=== PATIENT | female | born 1940 | race Caucasian/White ===

== ENCOUNTER 2022-03-04 15:55 | Observation (INO) ==
[2022-03-04 16:27] LABS: Basophils % 0.5 % (0.0-0.8); Eosinophils # 0.2 10*3/uL (0.0-0.87); Eosinophils % 3.6 % (0.00-10.9); Hematocrit 39.7 VOL% (35.7-47.0); Hemoglobin 13.6 GM/DL (12.0-16.0); Immature Granulocytes % 0.8 %; Immature Granulocytes Absolute 0.05 #; Lymphocytes # 1.8 10*3/uL (1.4-4.0); Lymphocytes % 28.3 % (21.3-54.2); Mean Corpuscular HGB Conc 34.3 GM/DL (32-36); Mean Corpuscular Volume 92.5 FL (87-102); Monocytes # 0.5 10*3/uL (0.11-0.8); Monocytes % 7.9 % (1.7-12.7); Neutrophils % 58.9 % (38.7-73.9); Platelet Count 176 T/CUMM (130-400); Red Blood Count 4.29 MC/CUMM (3.8-5.5); Red Cell Distribution Width 12.3 % (9.3-17.3); White Blood Count 6.5 T/CUMM (4-12)
[2022-03-04 16:41] LABS: Albumin 3.5 G/DL (3.4-5.0); Bilirubin,Total 0.5 MG/DL (0.20-1.00); Total Protein 6.8 G/DL (6.4-8.2)
[2022-03-04] MEDS ORDERED: diphenhydrAMINE CAP 25 MG CAPSULE PO PRN (16:58)
[2022-03-04] MEDS ORDERED: NITROGLYCERIN SL 0.4 MG TABLET SL PRN (17:10)
[2022-03-04] MEDS ORDERED: POTASSIUM CHLORIDE 20 MEQ TABLET PO STA ×2 (17:10→17:47)
[2022-03-04] MEDS ORDERED: FAMOTIDINE 20 MG/2 ML VIAL IV ONE (17:27)
[2022-03-04] MEDS: methylPREDNISolone SOD SUC 125 MG/2 ML VIAL IV SCH (17:33)
[2022-03-04] MEDS: FAMOTIDINE INJ 40 MG in SODIUM CHLORIDE 0.9% 100 ML IV SCH (17:48)
[2022-03-04] MEDS ORDERED: ACETAMINOPHEN 325 MG TABLET PO PRN (17:54)
[2022-03-04] MEDS ORDERED: ONDANSETRON 4 MG/2 ML VIAL IV PRN (17:54)
[2022-03-04] MEDS ORDERED: POTASSIUM CHLORIDE 20 MEQ TABLET PO PRN (17:57)
[2022-03-04] MEDS ORDERED: ENOXAPARIN 40 MG/0.4 ML SYRINGE SUBCUT SCH (18:00)
[2022-03-04] MEDS ORDERED: atenoloL 25 MG TABLET PO ONE (21:00)
[2022-03-05 04:19] LABS: Hematocrit 39.9 VOL% (35.7-47.0); Hemoglobin 13.6 GM/DL (12.0-16.0); Immature Granulocytes % 0.6 %; Immature Granulocytes Absolute 0.02 #; Lymphocytes # 0.6 10*3/uL (1.4-4.0); Lymphocytes % 17.8 % (21.3-54.2); Mean Corpuscular HGB Conc 34.1 GM/DL (32-36); Mean Corpuscular Volume 93.2 FL (87-102); Mean Platelet Volume 10.1 FL (9.6-12.0); Monocytes % 1.1 % (1.7-12.7); Neutrophils % 80.5 % (38.7-73.9); Platelet Count 186 T/CUMM (130-400); Red Blood Count 4.28 MC/CUMM (3.8-5.5); Red Cell Distribution Width 12.6 % (9.3-17.3); White Blood Count 3.5 T/CUMM (4-12)
[2022-03-05 04:34] LABS: Risk Ratio 3.42; VLDL Cholesterol 15.8 MG/DL
[2022-03-05 04:42] LABS: Alanine Aminotransferase 44 U/L (13-56); Albumin 3.7 G/DL (3.4-5.0); Alkaline Phosphatase 69 U/L (45-117); Aspartate Amino Transferase 35 U/L (0-37); Bilirubin,Total < 0.39 MG/DL (0.20-1.00); Blood Urea Nitrogen 10 MG/DL (7-18); Calcium 8.9 MG/DL (8.5-10.1); Carbon Dioxide 24 MMOL/L (21-32); Chloride 110 MMOL/L (98-107); Glucose 185 MG/DL (74-106); Osmolality,Calculated 282.4 MOS/KG (273-304); Sodium 140 MMOL/L (136-145); Thyroid Stimulating Hormone 0.527 uIU/ml (0.358-3.74); Total Protein 6.9 G/DL (6.4-8.2)
[2022-03-05] MEDS ORDERED: FAMOTIDINE 20 MG/2 ML VIAL IV ONE (05:51)
[2022-03-05] MEDS: FAMOTIDINE INJ 40 MG in SODIUM CHLORIDE 0.9% 100 ML IV SCH (05:56)
[2022-03-05] MEDS: methylPREDNISolone SOD SUC 125 MG/2 ML VIAL IV SCH (05:56)
[2022-03-05] MEDS ORDERED: LEVOTHYROXINE 100 MCG TABLET PO ONE (06:30)
[2022-03-05] MEDS ORDERED: ASPIRIN EC 81 MG TABLET PO SCH (09:00)
[2022-03-05] MEDS ORDERED: atenoloL 25 MG TABLET PO SCH (09:00)
[2022-03-05] MEDS ORDERED: ROSUVASTATIN 20 MG TABLET PO SCH (09:00)
[2022-03-05 10:47] VITALS: BP 170/91
[2022-03-06] MEDS ORDERED: LEVOTHYROXINE 100 MCG TABLET PO SCH (06:30)
== END 2022-03-05 10:47 | disposition home or self-care (01) ==
LOC: EDBD → EDUNIT# → N.ED 15:55 → N.EDINP 15:55 → SUATTDRO 17:54 → N.EDINP 03-05 10:50
PROVIDERS: ADMIT Internal Medicine; ATTEND Internal Medicine